=== PATIENT | male | born 1990 ===

== ENCOUNTER 2017-08-13 02:24 | Emergency (ER) | payer SELFPAY ==
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
== END 2017-08-13 02:50 ==
LOC: DL.ED 02:24
DX: F10.129 Alcohol abuse with intoxication, unspecified (principal); F17.210 Nicotine dependence, cigarettes, uncomplicated; Y90.8 Blood alcohol level of 240 mg/100 ml or more
CPT/HCPCS: 36415; 99283; G0480; 99282